=== PATIENT | female | born 1945 | race Caucasian/White ===

== ENCOUNTER 2016-10-01 07:39 | Inpatient (IN) | payer OTHER, BC ==
[~2016-10-01] VITALS: Ht 167.6 cm; Wt 73.7 kg
[2016-10-01] MEDS ORDERED: RITALIN LA20 MG PO (09:00)
[2016-10-01] MEDS ORDERED: AMLODIPINE BESYL5 MG PO (09:01)
[2016-10-01] MEDS ORDERED: RITALIN5 MG PO (09:01)
[2016-10-01] MEDS ORDERED: FOLIC ACID20 MG PO (09:02)
[2016-10-01] MEDS ORDERED: ERGOCALCIF50000 UNIT PO (09:02)
[2016-10-01] MEDS ORDERED: ZOLOFT100 MG PO (09:03)
[2016-10-01] MEDS ORDERED: MELOXICAM7.5 MG PO (09:04)
[2016-10-01] MEDS ORDERED: TREXALL10 MG PO (09:04)
[2016-10-01] MEDS ORDERED: LEUCOVORIN CALCI5 MG PO (09:05)
[2016-10-01] MEDS ORDERED: PREMARIN1.25 MG PO (09:06)
[2016-10-01] MEDS ORDERED: NEXIUM40 MG PO (09:06)
[2016-10-01] MEDS ORDERED: METRONIDAZOLE250 MG PO (09:07)
[2016-10-01] MEDS ORDERED: ZINC50 M1 PO (09:08)
[2016-10-01] MEDS ORDERED: VITAMIN E100 UNIT PO (09:09)
[2016-10-01] MEDS ORDERED: ASCORBIC ACID500 M3 PO (09:09)
[2016-10-01 19:50] VITALS: BP 153/72
[2016-10-01 23:30] VITALS: BP 156/73
[2016-10-02 03:30] VITALS: BP 128/61
[2016-10-02 07:46] VITALS: BP 149/70
[2016-10-02 19:30] VITALS: BP 140/80
[2016-10-02 23:00] VITALS: BP 127/67
[2016-10-03 07:43] VITALS: BP 134/67
[2016-10-03 11:08] VITALS: BP 127/61
== END 2016-10-03 14:56 | disposition home or self-care (01) | DRG 244 ==
LOC: CATH 07:39 → 4EAST 14:02 → 2SOUTH 14:02 → 4EAST 19:51
PROC: B215YZZ Fluoroscopy of Left Heart using Other Contrast (ICD-10-PCS; principal; 2016-10-01)
PROC: B211YZZ Fluoroscopy of Multiple Coronary Arteries using Other Contrast (ICD-10-PCS; principal; 2016-10-01)
PROC: 4A023N7 Measurement of Cardiac Sampling and Pressure, Left Heart, Percutaneous Approach (ICD-10-PCS; principal; 2016-10-01)
PROC: 0JH606Z Insertion of Pacemaker, Dual Chamber into Chest Subcutaneous Tissue and Fascia, Open Approach (ICD-10-PCS; 2016-10-02)
PROC: 02H63JZ Insertion of Pacemaker Lead into Right Atrium, Percutaneous Approach (ICD-10-PCS; 2016-10-02)
PROC: 02HK3JZ Insertion of Pacemaker Lead into Right Ventricle, Percutaneous Approach (ICD-10-PCS; 2016-10-02)
DX: I44.1 Atrioventricular block, second degree (principal); I45.89 Other specified conduction disorders; I11.9 Hypertensive heart disease without heart failure; R07.9 Chest pain, unspecified; E78.5 Hyperlipidemia, unspecified; M19.90 Unspecified osteoarthritis, unspecified site; I25.10 Atherosclerotic heart disease of native coronary artery without angina pectoris; I45.10 Unspecified right bundle-branch block; G47.419 Narcolepsy without cataplexy
CPT/HCPCS: 36415; 71010; 80048; 85025; 85610 GA; 85730; 93005; C1769; C1785; C1887; C1892; C1894; C1898; J0690; J1644; J2250; J3010; J7040; S0020

== ENCOUNTER 2016-10-24 09:40 | Day surgery (SDC) | payer OTHER, BC ==
[~2016-10-24] VITALS: Ht 167.6 cm; Wt 72.1 kg
[~2016-10-24 09:40] MED LIST: AMLODIPINE BESYL5 MG PO; ASCORBIC ACID500 M3 PO; ERGOCALCIF50000 UNIT PO; FOLIC ACID20 MG PO; LEUCOVORIN CALCI5 MG PO; MELOXICAM7.5 MG PO; METRONIDAZOLE250 MG PO; NEXIUM40 MG PO; PREMARIN1.25 MG PO; RITALIN LA20 MG PO; RITALIN5 MG PO; TREXALL10 MG PO; VITAMIN E100 UNIT PO; ZINC50 M1 PO; ZOLOFT100 MG PO
[2016-10-24 16:00] VITALS: BP 154/70
[2016-10-24] MEDS ORDERED: VOLTAREN 1% GE100 GM TP (17:58)
[2016-10-24] MEDS ORDERED: TYLENOL ARTHRI650 MG PO (18:03)
[2016-10-24] MEDS ORDERED: TYLENOL EXTRA500 MG PO (18:04)
[2016-10-24] MEDS ORDERED: FOLITAB PO (18:09)
[2016-10-24 20:00] VITALS: BP 139/67
[2016-10-24 23:55] VITALS: BP 155/73
[2016-10-25 04:00] VITALS: BP 124/63
[2016-10-25 07:11] VITALS: BP 129/74
== END 2016-10-25 11:55 | disposition home or self-care (01) ==
LOC: CATH 09:40 → 4EAST 13:15
PROC: 02WA0MZ Revision of Cardiac Lead in Heart, Open Approach (ICD-10-PCS; principal; 2016-10-24)
DX: T82.120A Displacement of cardiac electrode, initial encounter (principal); Y83.1 Surgical operation with implant of artificial internal device as the cause of abnormal reaction of the patient, or of later complication, without mention of misadventure at the time of the procedure; I44.1 Atrioventricular block, second degree; I11.9 Hypertensive heart disease without heart failure; K21.9 Gastro-esophageal reflux disease without esophagitis; E78.5 Hyperlipidemia, unspecified; Z98.84 Bariatric surgery status; G47.419 Narcolepsy without cataplexy; M19.90 Unspecified osteoarthritis, unspecified site; Z88.0 Allergy status to penicillin; Z88.5 Allergy status to narcotic agent
CPT/HCPCS: 71010; 93005; G0378; J0690; J2250; J3010; S0020